=== PATIENT | female | born 1960 | race Caucasian/White ===

== ENCOUNTER 2018-09-28 13:32 | Emergency (ER) | payer OTHER | END 2018-09-28 14:45 | disposition home or self-care (01) | LOC: E/R 13:32 → FTE 14:45 | DX: S89.92XA Unspecified injury of left lower leg, initial encounter (principal); W18.30XA Fall on same level, unspecified, initial encounter; Y92.9 Unspecified place or not applicable | CPT/HCPCS: 73562; 99283-25 ==